=== PATIENT | female | born 1950 | race Caucasian/White ===

== ENCOUNTER 2019-03-28 09:44 | Emergency (ER) | payer OTHER ==
[2019-03-28 09:55] VITALS: BP 175/84
--- NOTE | 2019-03-28 09:59 | UC ---
Upper Extremity HPI - HPI Summary HPI Summary: gallery assistant notes - Fell on a root while hiking 5 days ago, still L lower arm pain, not improving. Has full ROM. Pleasant 68 yo female with left forearm / wrist / hand pain s/p t/f while hiking approx 5 days ago. No p/d/w. Able to move joints; however, pain is not improving. Pt is R handed. No other trauma reported. - History of Current Complaint Chief Complaint: UCUpperExtremity Stated Complaint: LT ARM INJURY/ FALL Time Seen by Provider: 03/28/19 09:58 Hx Obtained From: Patient Pain Intensity: 3 - Allergies/Home Medications Allergies/Adverse Reactions: Allergies Allergy/AdvReac Type Severity Reaction Status Date / Time erythromycin base Allergy GI Upset Verified 03/28/19 09:56 Sulfa (Sulfonamide Allergy Rash Verified 03/28/19 09:56 Antibiotics) Home Medications: Home Medications Aspirin/Acetaminophen/Caffeine [Excedrin Migraine Caplet] 1 each PO DAILY PRN [History Confirmed 03/28/19] PMH/Surg Hx/FS Hx/Imm Hx Previously Healthy: Yes - Surgical History Surgical History: Yes Surgery Procedure, Year, and Place: tonsillectomy - Family History Known Family History: Positive: Hypertension - Social History Alcohol Use: Occasionally Alcohol Amount: WINE Substance Use Type: None Smoking Status (MU): Never Smoked Tobacco Review of Systems All Other Systems Reviewed And Are Negative: Yes Constitutional: Positive: Negative Skin: Positive: Bruising - swelling Eyes: Positive: Negative ENT: Positive: Negative Respiratory: Positive: Negative Cardiovascular: Positive: Negative Gastrointestinal: Positive: Negative Genitourinary: Positive: Negative Motor: Positive: Other - see hpi Neurovascular: Positive: Other - see hpi Musculoskeletal: Positive: Other: - see hpi Neurological: Positive: Other Psychological: Positive: Negative Is Patient Immunocompromised?: No Physical Exam Triage Information Reviewed: Yes Appearance: Well-Appearing, Well-Nourished Vital Signs: Initial Vital Signs Temp 97.2 F 03/28/19 09:49 Pulse 68 03/28/19 09:49 Resp 16 03/28/19 09:49 BP 175/84 03/28/19 09:49 Pulse Ox 100 03/28/19 09:49 Vital Signs Reviewed: Yes Eye Exam: Normal - grossly normal ENT Exam: Normal - grossly normal Neck exam: Normal - no c/o pain. Moves neck spontaneously. Respiratory Exam: Normal - RR normal, no tachpynea, no dypsnea Cardiovascular Exam: Normal - HR normal, nondiaphoretic Abdominal Exam: Normal - no c/o pain, sitting up, benign Musculoskeletal Exam: Other - L distal forearm and ant wrist + ecchymosis, + swelling. + tender L distal ulnar and prox L 5th metacarpal region. Without specific point miguel tenderness. Distal cap refill good. + sens LT. + palp r /u pp. FROM wrist and hand, + good strength, able to straighten elbow ok. Neurological Exam: Other Psychological Exam: Normal Skin Exam: Other Upper Extremity Course/Dx - Course Course Of Treatment: Xray L forearm / wrist / hand L 4th digit + ring, pt removed while waiting. Reviewed xray reports with pt, including arthritic findings, she reports that this is not new to her, but will f/u with pcp. Referral orthopedic surgery 1-2 weeks (significant pain / swelling). Orhtopedic information per referral call given. Questions as posed answered to the best of my ability - Differential Dx/Diagnosis Provider Diagnosis: Wrist sprain, Hematoma Discharge ED - Sign-Out/Discharge Documenting (check all that apply): Patient Departure All imaging exams completed and their final reports reviewed: Yes - Discharge Plan Condition: Stable Disposition: HOME Prescriptions: Naproxen [Naprosyn 500 mg tab] 500 mg PO Q12H PRN #30 tablet PRN Reason: Pain - Moderate Patient Education Materials: Osteoarthritis (ED), Wrist Sprain (ED), Hematoma ( ED) Referrals: Yandel Noe MD [Primary Care Provider] - Additional Instructions: Splint during the day for 7 days (and as needed for comfort). Please seek medical attention for worse or new problems. Follow up orthopedic surgery 1-2 weeks (request hand specialist when you call for appointment) [facility] frequently. - Billing Disposition and Condition Condition: STABLE Disposition: Home
== END 2019-03-28 11:30 | disposition home or self-care (01) ==
LOC: UCEAST 09:44
DX: S63.502A Unspecified sprain of left wrist, initial encounter (principal); S60.212A Contusion of left wrist, initial encounter; S50.12XA Contusion of left forearm, initial encounter; W19.XXXA Unspecified fall, initial encounter; Z88.1 Allergy status to other antibiotic agents; Z88.2 Allergy status to sulfonamides; Z79.82 Long term (current) use of aspirin; Y93.01 Activity, walking, marching and hiking; Y92.9 Unspecified place or not applicable
CPT/HCPCS: 99212; G0463